=== PATIENT | female | born 1990 | race Asian ===

== ENCOUNTER 2022-09-03 13:48 | Emergency (ER) | payer MEDICAID ==
[~2022-09-03] VITALS: Ht 157.5 cm; Wt 69.0 kg
[~2022-09-03 13:48] MED LIST: FERR-63 PO; FERR325T6 MT; IBUP-2030 PO
[2022-09-03 14:01] VITALS: BP 152/100
[2022-09-03 14:26] LABS: CLARITY URINE CLOUDY (CLEAR); COLOR URINE YELLOW (YELLOW); SPECIFIC GRAVITY URINE 1.015 (1.005-1.030)
[2022-09-03 14:27] LABS: KETONES URINE NEGATIVE (NEGATIVE); NITRITE URINE NEGATIVE (NEGATIVE); OCCULT BLOOD URINE 4+ (NEGATIVE); PROTEIN URINE 1+ (NEGATIVE); UROBILINOGEN URINE 0.2 E.U./dL (0.2-1.0)
[2022-09-03 14:28] LABS: LEUKOCYTE ESTERASE URINE 4+ (NEGATIVE)
[2022-09-03 14:37] LABS: CHLORIDE 107 mEq/L (98-107)
[2022-09-03 14:40] LABS: BASOPHILS % 0.6 % (0.0-2.0); EOSINOPHILS % 2.6 % (0.0-5.0); HEMATOCRIT. 38.2 % (36.0-48.0); HEMOGLOBIN. 12.7 g/dL (12.0-16.0); LYMPHOCYTES % 19.9 % (20.0-50.0); MEAN CORPUSCULAR HEMOGLOBIN 30.4 pg (28.0-32.0); MEAN CORPUSCULAR VOLUME 91.1 fL (81.0-99.0); MEAN PLATELET VOLUME 8.7 fl (7.4-10.4); MONOCYTES % 3.9 % (2.0-8.0); PLATELET 214 x1000/uL (130-400); RED BLOOD CELL COUNT 4.19 mill/uL (4.2-5.4); RED CELL DISTRIBUTION WIDTH 12.1 % (11.6-14.6)
[2022-09-03 14:48] LABS: B-HCG QUANTITATIVE < 1 mIU/mL (<3)
[2022-09-03] MEDS ORDERED: CEPH500C2 MT (17:07)
== END 2022-09-03 17:25 | disposition home or self-care (01) ==
LOC: ER 13:48
DX: N93.8 Other specified abnormal uterine and vaginal bleeding (principal); N30.00 Acute cystitis without hematuria; I10 Essential (primary) hypertension
CPT/HCPCS: 36415; 76830; 76856; 80053; 81003; 84702; 85025; 86850; 86900; 87186; 99284